=== PATIENT | male | born 1950 | race Caucasian/White ===

== ENCOUNTER 2017-12-08 11:34 | Emergency (ER) | payer OTHER ==
--- NOTE | 2017-12-08 13:36 | RAD REPORT ---
EXAM DESCRIPTION: RAD - Hand Right 3 View - 12/08/2017 1:20 pm CLINICAL HISTORY: swelling, ecchymosis Trauma, pain COMPARISON: No comparisons FINDINGS: Radiocarpal arthritic changes and first carpometacarpal arthritic changes are present. No acute fracture or subluxation is seen. No aggressive marrow lesion. Mild generalized soft tissue swel ling. IMPRESSION: Moderate arthritic changes as detailed.
--- NOTE | 2017-12-08 14:25 | EDPHYS ---
Physician Documentation [facility] Name: Osmar Lutz Age: 67 yrs Sex: Male : 1950 Arrival Date: 12/08/2017 Time: 11:38 Bed 17 Private MD: Jan Pending Sale To [facility] ED Physician Brett Murray HPI: 12/08 12:28 This 67 yrs old Male presents to ER via Ambulatory with complaints of Hand snw Swelling. 12:28 The patient or guardian reports swelling, bruising. The complaints affect the right snw hand diffusely. Context: The problem was sustained at home, resulted from an unknown cause. Onset: The symptoms/episode began/occurred suddenly, 3 day(s) ago, and became persistent. Modifying factors: The symptoms are alleviated by nothing, the symptoms are aggravated by nothing. Associated signs and symptoms: Pertinent positives: significant ecchymosis. Severity of symptoms: At their worst the symptoms were moderate. The patient has not experienced similar symptoms in the past. The patient has not recently seen a physician, the patient's primary care provider is Dr. Dr. Montoya. Historical: - Allergies: 11:42 No Known Allergies; hj - Home Meds: 11:42 Insulin: Novolin R Sub-Q [Active]; metoprolol tartrate Oral [Active]; Allopurinol Oral hj [Active]; 11:43 atorvastatin oral oral [Active]; Furosemide Oral [Active]; hj - PMHx: 11:42 Diabetes - NIDDM; Hypertension; Gout; hj 11:43 Hyperlipidemia; hj - PSHx: 11:42 None; hj - Immunization history:: Adult Immunizations up to date. - Social history:: Smoking status: Patient/guardian denies using tobacco, Patient/guardian denies using alcohol. - Ebola Screening: : Patient negative for fever greater than or equal to 101.5 degrees Fahrenheit, and additional compatible Ebola Virus Disease symptoms Patient denies exposure to infectious person Patient denies travel to an Ebola-affected area in the 21 days before illness onset. ROS: 12:30 Constitutional: Negative for fever, chills, and weight loss, Eyes: Negative for injury, snw pain, redness, and discharge, ENT: Negative for injury, pain, and discharge, Neck: Negative for injury, pain, and swelling, Cardiovascular: Negative for chest pain, palpitations, and edema, Respiratory: Negative for shortness of breath, cough, wheezing, and pleuritic chest pain, Abdomen/GI: Negative for abdominal pain, nausea, vomiting, diarrhea, and constipation, Back: Negative for injury and pain, : Negative for injury, bleeding, discharge, and swelling, Skin: Negative for injury, rash, and discoloration, Neuro: Negative for headache, weakness, numbness, tingling, and seizure. 12:30 MS/extremity: Positive for injury or acute deformity, ecchymosis, swelling, of the right hand. Exam: 12:32 Constitutional: This is a well developed, well nourished patient who is awake, alert, snw and in no acute distress. Head/Face: Normocephalic, atraumatic. Eyes: Pupils equal round and reactive to light, extra-ocular motions intact. Lids and lashes normal. Conjunctiva and sclera are non-icteric and not injected. Cornea within normal limits. Periorbital areas with no swelling, redness, or edema. ENT: Nares patent. No nasal discharge, no septal abnormalities noted. Tympanic membranes are normal and external auditory canals are clear. Oropharynx with no redness, swelling, or masses, exudates, or evidence of obstruction, uvula midline. Mucous membranes moist. Neck: Trachea midline, no thyromegaly or masses palpated, and no cervical lymphadenopathy. Supple, full range of motion without nuchal rigidity, or vertebral point tenderness. No Meningismus. Chest/axilla: Normal chest wall appearance and motion. Nontender with no deformity. No lesions are appreciated. Cardiovascular: Regular rate and rhythm with a normal S1 and S2. No gallops, murmurs, or rubs. Normal PMI, no JVD. No pulse deficits. Respiratory: Lungs have equal breath sounds bilaterally, clear to auscultation and percussion. No rales, rhonchi or wheezes noted. No increased work of breathing, no retractions or nasal flaring. Abdomen/GI: Soft, non-tender, with normal bowel sounds. No distension or tympany. No guarding or rebound. No evidence of tenderness throughout. Back: No spinal tenderness. No costovertebral tenderness. Full range of motion. MS/ Extremity: Pulses equal, no cyanosis. Neurovascular intact. Full, normal range of motion. Neuro: Awake and alert, GCS 15, oriented to person, place, time, and situation. Cranial nerves II-XII grossly intact. Motor strength 5/5 in all extremities. Sensory grossly intact. Cerebellar exam normal. Normal gait. Psych: Awake, alert, with orientation to person, place and time. Behavior, mood, and affect are within normal limits. 12:32 Skin: Appearance: normal except for affected area, injury, right hand dorsally with ecchymosis over 3rd-5th metacarpal area with mild edema, full ROM, low level tenderness. Vital Signs: 11:44 BP 166 / 62; Pulse 62; Resp 18; Temp 97.8(TE); Pulse Ox 98% on R/A; Weight 90.26 kg; hj Height 5 ft. 8 in. (172.72 cm); Pain 2/10; 12:10 BP 162 / 64; Pulse 52; Resp 16; Pulse Ox 94% on R/A; Pain 2/10; em 13:00 BP 171 / 77; Pulse 54; Resp 16; Pulse Ox 95% on R/A; Pain 2/10; em 13:57 BP 155 / 64; Pulse 52; Resp 16; Pulse Ox 97% on R/A; em 11:44 Body Mass Index 30.26 (90.26 kg, 172.72 cm) hj MDM: 11:52 Patient medically screened. snw 14:25 Data reviewed: vital signs, nurses notes. Data interpreted: Pulse oximetry: on room air snw is 97 %. Interpretation: normal. Counseling: I had a detailed discussion with the patient and/or guardian regarding: the historical points, exam findings, and any diagnostic results supporting the discharge/admit diagnosis, the presence of at least one elevated blood pressure reading (>120/80) during this emergency department visit, radiology results, the need for outpatient follow up, to return to the emergency department if symptoms worsen or persist or if there are any questions or concerns that arise at home. Special discussion: Based on the history and exam findings, there is no indication for further emergent testing or inpatient evaluation. I discussed with the patient/guardian the need to see the primary care provider for further evaluation of the symptoms. 12/08 12:13 Order name: Hand Right 3 View; Complete Time: 13:53 EDMS 12/08 13:53 Order name: Volar Wrist Splint; Complete Time: 14:19 snw Administered Medications: No medications were administered Disposition: 15:04 Co-signature as Attending Physician, Brett Murray MD I agree with the assessment and kdr plan of care. Disposition: 12/08/17 14:25 Discharged to Home. Impression: Pain in right hand, Spontaneous ecchymoses. - Condition is Stable. - Discharge Instructions: Musculoskeletal Pain, Cryotherapy, [id number], Heat Therapy. - Medication Reconciliation Form, Thank You Letter, Antibiotic Education, Prescription Opioid Use form. - Follow up: Tony Montoya DO; When: 2 - 3 days; Reason: Recheck today's complaints, Continuance of care, Re-evaluation by your physician. Follow up: Emergency Department; When: As needed; Reason: Worsening of condition. Signatures: Dispatcher [employer] [facility] Brett Murray MD MD kdr Heidy Puente, GROCERY STORE CLERK-C GROCERY STORE CLERK-Csnw Sy Villalba, OFFICE SECRETARY OFFICE SECRETARY Good Diaz, RN RN hj Corrections: (The following items were deleted from the chart) 13:20 13:14 Hand Right 3 View+RAD.RAD.BRZ ordered. [facility] 14:39 14:25 12/08/2017 14:25 Discharged to Home. Impression: Pain in right hand; Spontaneous em ecchymoses. Condition is Stable. Forms are Medication Reconciliation Form, Thank You Letter, Antibiotic Education, Prescription Opioid Use. Follow up: Tony Montoya; When: 2 - 3 days; Reason: Recheck today's complaints, Continuance of care, Re-evaluation by your physician. Follow up: Emergency Department; When: As needed; Reason: Worsening of condition. snw
--- NOTE | 2017-12-08 14:25 | ER ---
Nurse's Notes [facility] Name: Osmar Lutz Age: 67 yrs Sex: Male : 1950 Arrival Date: 12/08/2017 Time: 11:38 Bed 17 Private MD: Tony Montoya Diagnosis: Pain in right hand;Spontaneous ecchymoses Presentation: 12/08 11:38 Presenting complaint: Patient states: few days ago, i was awaken by the pain on my R hj hand and swelling, it seems like its bruised; denies trauma to the area; i think at some point I was bitten by an insect; denies fever and chills; reports tingling and numbness in the area;. Transition of care: patient was not received from another setting of care. Onset of symptoms was December 08, 2017. Risk Assessment: Do you want to hurt yourself or someone else? Patient reports no desire to harm self or others. Initial Sepsis Screen: Does the patient meet any 2 criteria? No. Patient's initial sepsis screen is negative. Does the patient have a suspected source of infection? No. Patient's initial sepsis screen is negative. Care prior to arrival: None. 11:38 Method Of Arrival: Ambulatory 11:38 Acuity: BARON 4 hj Triage Assessment: 11:43 General: Appears in no apparent distress. uncomfortable, Behavior is calm, cooperative, hj appropriate for age. Pain: Complains of pain in right hand Pain currently is 2 out of 10 on a pain scale. Historical: - Allergies: 11:42 No Known Allergies; hj - Home Meds: 11:42 Insulin: Novolin R Sub-Q [Active]; metoprolol tartrate Oral [Active]; Allopurinol Oral hj [Active]; 11:43 atorvastatin oral oral [Active]; Furosemide Oral [Active]; hj - PMHx: 11:42 Diabetes - NIDDM; Hypertension; Gout; hj 11:43 Hyperlipidemia; hj - PSHx: 11:42 None; hj - Immunization history:: Adult Immunizations up to date. - Social history:: Smoking status: Patient/guardian denies using tobacco, Patient/guardian denies using alcohol. - Ebola Screening: : Patient negative for fever greater than or equal to 101.5 degrees Fahrenheit, and additional compatible Ebola Virus Disease symptoms Patient denies exposure to infectious person Patient denies travel to an Ebola-affected area in the 21 days before illness onset. Screenin:43 Abuse screen: Denies threats or abuse. Denies injuries from another. Nutritional hj screening: No deficits noted. Tuberculosis screening: No symptoms or risk factors identified. Fall Risk None identified. Assessment: 11:55 General: Appears in no apparent distress. comfortable, Behavior is calm, cooperative, em Reports felt a bite about a week ago, pain was worse during the week but came in due to the color change in right hand Denies fever, chills. Pain: Complains of pain in right hand. Neuro: Level of Consciousness is awake, alert, obeys commands, Oriented to person, place, time, situation. Cardiovascular: Capillary refill < 3 seconds Patient's skin is warm and dry. Respiratory: Airway is patent Respiratory effort is even, unlabored, Respiratory pattern is regular, symmetrical. GI: Abdomen is round non-distended. : No signs and/or symptoms were reported regarding the genitourinary system. EENT: No signs and/or symptoms were reported regarding the EENT system. Derm: Skin is intact, Skin is pink, warm \T\ dry. Bruising that is dark purple, on right hand. Musculoskeletal: Range of motion: intact in all extremities. 12:10 Reassessment: Patient appears in no apparent distress at this time. I agree with above iw assessment by Sy Villalba LVN. 13:01 Reassessment: Patient appears in no apparent distress at this time. Patient and/or em family updated on plan of care and expected duration. Pain level reassessed. Patient is alert, oriented x 3, equal unlabored respirations, skin warm/dry/pink. 14:00 Reassessment: Patient appears in no apparent distress at this time. Patient and/or em family updated on plan of care and expected duration. Pain level reassessed. Patient is alert, oriented x 3, equal unlabored respirations, skin warm/dry/pink. pt signed ortho form, form on chart. Vital Signs: 11:44 BP 166 / 62; Pulse 62; Resp 18; Temp 97.8(TE); Pulse Ox 98% on R/A; Weight 90.26 kg; hj Height 5 ft. 8 in. (172.72 cm); Pain 2/10; 12:10 BP 162 / 64; Pulse 52; Resp 16; Pulse Ox 94% on R/A; Pain 2/10; em 13:00 BP 171 / 77; Pulse 54; Resp 16; Pulse Ox 95% on R/A; Pain 2/10; em 13:57 BP 155 / 64; Pulse 52; Resp 16; Pulse Ox 97% on R/A; em 11:44 Body Mass Index 30.26 (90.26 kg, 172.72 cm) hj ED Course: 11:38 Patient arrived in ED. mr 11:38 Tony Montoya DO is Private Physician. mr 11:41 Triage completed. hj 11:43 Arm band placed on left wrist. hj 11:45 Patient has correct armband on for positive identification. hj 11:52 Heidy Puente FNP-C is [facility]. snw 11:52 Brett Murray MD is Attending Physician. snw 11:58 Sy Villalba LVN is Primary Nurse. em 13:20 Hand Right 3 View In Process Unspecified. EDMS 14:10 No provider procedures requiring assistance completed. Patient did not have IV access em during this emergency room visit. Orthoglass splint: Volar splint applied on right arm. 14:24 Tony Montoya DO is Referral Physician. snw Administered Medications: No medications were administered Outcome: 14:25 Discharge ordered by MD. snw 14:39 Discharged to home ambulatory. em 14:39 Condition: good 14:39 Discharge instructions given to patient. 14:39 Instructed on discharge instructions, follow up and referral plans. Demonstrated understanding of instructions, follow-up care. 14:39 Patient left the ED. em Signatures: Dispatcher [employer] EDMS Heidy Puente FNP-C CYBER SECURITY ADMINISTRATOR-Csnw [employer] Kristina salazar VillalbaSy LVN VIDEO NEWS EDITOR em Gail Russ RN TALIB Good Julian RN RN Corrections: (The following items were deleted from the chart) 11:45 11:44 Pulse 62bpm; Resp 18bpm; Pulse Ox 96% RA; Temp 97.8F Temporal; 90.26 kg; Height 5 hj ft. 8 in.; BMI: 30.2; Pain 2/10; hj
== END 2017-12-08 14:39 | disposition home or self-care (01) ==
LOC: ER 11:34
DX: M79.641 Pain in right hand (principal); R23.3 Spontaneous ecchymoses; E11.9 Type 2 diabetes mellitus without complications; I10 Essential (primary) hypertension; E78.5 Hyperlipidemia, unspecified
CPT/HCPCS: 99283

== ENCOUNTER 2020-02-09 09:00 | Day surgery (SDC) | payer OTHER ==
--- OUTSIDE RECORDS SUMMARY | 2020-02-09 09:09 | XMS REPORT ---
:1950 Author Organization eClinical[employer] Care Team Providers Name Role Phone Tony Montoya Provider Role Unavailable Allergies No Known Allergies Problems Problem Type Condition Code Onset Dates Condition Statu s Problem Chronic kidney disease, stage 3 N18.3 Active Problem Other obesity due to excess calories E66.09 Active Problem Iron deficiency anemia, unspecified D50.9 Active iron deficiency anemia type Problem Type 2 diabetes mellitus with E11.22 Active diabetic chronic kidney disease Problem Type 2 diabetes mellitus with other E11.29 Active diabetic kidney complication Problem Diabetes 1.5, 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 Problem Proteinuria, unspecified R80.9 Act kristen Problem Body mass index (BMI) 31.0-31.9, Z68.31 Active adult Problem assisted (current) use of insulin Z79.4 Active Problem Chronic kidney disease, stage 3 N18.3 Active (moderate) Problem Gout, unspecified cause, unspecified M10.9 Active chronicity, unspecified site Assessment Benign essential HTN I10 Active Problem Vitamin D deficiency E55.9 Active Problem Benign essential HTN I10 Active Problem Venous insufficiency I87.2 Active Problem Hyperlipidemia, mixed E78.2 Active Problem Diabetes type 2, uncontrolled E11.65 Active Problem Stasis dermatitis I83.10 Active Medications Medication Code Code Instructions Start End Status Dosage System Date Date HydrALAZINE HCl [facility] [id number] 100 MG Orally Active 1 tablet Three times a with food day Results No Known Results Summary Purpose eClinicalWorks Submission
--- OUTSIDE RECORDS SUMMARY | 2020-02-09 09:09 | XMS REPORT | Continuity of Care Document ---
:1950 Author Organization [facility] t Address [address] [place] [id number] Care Team Providers Name Role Phone Unavailable Unavailable Unavailable Problems Condition Condition Condition Status Onset Resolution Last Treating Co mments Source Name Details Category Date Date Treatment Clinician Date Diabetes Diabetes Problem [facility] - uncontroll uncontroll Me moria ed ed l [facility] Gout, Gout, Problem Active [facility] unspecifie unspecifie Rhonda kes - d cause, d cause, Memori a unspecifie unspecifie l d d Outpati chronicity chronicity en t , , Clinics unspecifie unspecifie d site d site Vitamin D Vitamin D Problem Active [facility] deficiency deficiency Rhonda kes - Memoria l [facility] Benign Benign Problem Active [facility] essential essential [facility] - HTN HTN Memoria l [facility] Hyperlipid Hyperlipid Problem Active [facility] emia, emia, [facility] - mixed mixed Memoria l [facility] Chronic Chronic Problem Active [facility] kidney kidney [facility] - disease, disease, Memori a stage 3 stage 3 l (moderate) (moderate) Ou tpati ent Clinics Venous Venous Problem Active [facility] insufficie insufficie Rhonda kes - ncy ncy Memoria l [facility] Stasis Stasis Problem Active [facility] dermatitis dermatitis Rhonda kes - Memoria l [facility] Iron Iron Problem Active [facility] deficiency deficiency Rhonda kes - anemia, anemia, Memoria unspecifie unspecifie l d iron d iron Outpati deficiency deficiency en t anemia anemia Clinics type type Body mass Body mass Problem Active [facility] index index [facility] - (BMI) (BMI) Memoria 31.0-31.9, 31.0-31.9, l adult adult [facility] Other Other Problem Active [facility] obesity obesity [facility] - due to due to Memoria excess excess l calories calories Outpat i ent Clinics long term care administrator long term care administrator Problem Active [facility] (current) (current) Luke [facility] - use of use of Memoria insulin insulin l Outpati ent Clinics Proteinuri Proteinuri Problem Active [facility] a, a, [facility] - unspecifie unspecifie Me moria d d l [facility] Type 2 Type [address] [facility] diabetes diabetes [facility] - mellitus mellitus Memori a with with l diabetic diabetic Outpat i chronic chronic ent kidney kidney Clinics disease disease Type 2 Type [address] [facility] diabetes diabetes [facility] - mellitus mellitus Memori a with other with other l diabetic diabetic Outpat i kidney kidney ent complicati complicati Cl inics on on Diabetes Diabetes Problem [facility] 1.5, 1.5, [facility] - managed as managed as moriamaya type 1 type 1 l [facility] Allergies, Adverse Reactions, Alerts This patient has no known allergies or adverse reactions. Medications Ordered Filled Start Stop Current Ordering Indication Dosage Frequency Signature Comments Components Source Medication Medication Date Date Medication? Clinician (SIG) Name Name HydrALAZINE HydrALAZINE Yes Tony [address] [facility] HCl HCl Montoya with food [facility] - [facility] Procedures This patient has no known procedures. Encounters Start End Encounter Admission Attending Care Care Encounter Source Date/Time Date/Time Type Type Clinicians Facility Department ID 2020-01-23 2020-01-23 Outpatient Deejay Villalbat [id number] [facility] 15:43:00 15:43:00 [employer] [facility] Medicine l Medicine Outpati ent Clinics 2019-12-31 2019-12-31 [facility] [id number] [facility] 09:45:00 09:45:00 [facility] Family Medicine l Medicine Outpati ent Clinics 2019-11-03 2019-11-03 [facility] [id number] [facility] 15:46:00 15:46:00 [facility] Dealer [employer] [facility] Medicine l Medicine Outpati ent Clinics 2019-10-01 2019-10-01 [place] [facility] [id number] [facility] 10:15:00 10:15:00 [facility] Medicine l Medicine Outpati ent Clinics 2019-09-09 2019-09-09 [place] [id number] 10:46:00 10:46:00 [place] [facility] [place] [facility] - [facility] Medicine Medicine Outpati ent Clinics 2019-07-02 2019-07-02 [facility] [id number] [facility] 10:30:00 10:30:00 [place] [facility] s - Drive [facility] l Medicine Outpati ent Clinics 2019-06-09 2019-06-09 [place] [id number] 10:56:00 10:56:00 [place] [facility] s - Drive [facility] Medicine l Medicine Outpati ent Clinics 2019-05-12 2019-05-12 [facility] [id number] [facility] 15:18:00 15:18:00 [place] i[place]ian s - Drive [facility] l Medicine Outpati ent Clinics 2019-05-01 2019-05-01 [facility] [id number] [facility] 13:49:00 13:49:00 [place] - Drive [facility] Medicine Outpati ent Clinics 2019-04-30 2019-04-30 [facility] [id number] 08:52:00 08:52:00 [place] s - Drive [facility] l Medicine Outpati ent Clinics 2019-04-29 2019-04-29 [facility] [id number] 09:23:00 09:23:00 [place] - Drive [facility] Medicine Outpati ent Clinics 2019-03-19 2019-03-19 [facility] [id number] [facility] 13:15:00 13:15:00 [place] - [address] [facility] Medicine l Medicine Outpati ent Clinics 2019-03-18 2019-03-18 [facility] [id number] 08:32:00 08:32:00 [place] - Drive [facility] l Medicine Outpati ent Clinics 2018-12-03 2018-12-03 [facility] [id number] [facility] 15:00:00 15:00:00 [place] - [address] [facility] Medicine Outpati ent Clinics 2018-08-13 2018-08-13 [facility] [id number] [facility] 14:30:00 14:30:00 t [employer] [facility] Medicine Outpati ent Clinics 2018-08-12 2018-08-12 [facility] [id number] 15:13:00 15:13:00 t [employer] [facility] Medicine Outpati ent Clinics 2018-07-03 2018-07-03 [facility] [id number] [facility] 14:29:00 14:29:00 t [employer] [facility] Medicine Outpati ent Clinics 2018-01-14 2018-01-14 [facility] [id number] 09:30:00 09:30:00 t [employer] [facility] Medicine Outpati ent Clinics Results This patient has no known results.
--- OUTSIDE RECORDS SUMMARY | 2020-02-09 09:09 | XMS REPORT ---
:1950 Author Organization [employer] Care Team Providers Name Role Phone Tony Montoya Provider Role Unavailable Allergies, Adverse Reactions, Alerts Substance Reaction Event Type N.K.D.A. Info Not Available Non Drug Allergy Problems Problem Type Condition Code Onset Dates Condition Statu s Assessment Body mass index (BMI) 31.0-31.9, Z68.31 Active adult Assessment care home (current) use of insulin Z79.4 Active Assessment Screening for colon cancer Z12.11 A ctive Assessment Other obesity due to excess calories E66.09 Active Assessment Polyp of colon, unspecified part of K63.5 Active colon, unspecified type Assessment Iron deficiency anemia, unspecified D50.9 Active iron deficiency anemia type Assessment Gout, unspecified cause, unspecified M10.9 Active chronicity, unspecified site Assessment Vitamin D deficiency E55.9 Active Problem Hyperlipidemia, mixed E78.2 Active Assessment Stasis dermatitis I83.10 Active Problem Stasis dermatitis I83.10 Active Assessment Proteinuria, unspecified R80.9 Act kristen Problem Chronic kidney disease, stage 3 N18.3 Active Problem Other obesity due to excess calories E66.09 Active Problem Iron deficiency anemia, unspecified D50.9 Active iron deficiency anemia type Problem Type 2 diabetes mellitus with E11.22 Active diabetic chronic kidney disease Problem Type 2 diabetes mellitus with other E11.29 Active diabetic kidney complication Assessment Chronic kidney disease, stage 3 N18.3 Active Assessment Hyperlipidemia, mixed E78.2 Active Problem Diabetes 1.5, 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 Assessment Venous insufficiency I87.2 Active Problem Proteinuria, unspecified R80.9 Act kristen Problem Body mass index (BMI) 31.0-31.9, Z68.31 Active adult Problem care home (current) use of insulin Z79.4 Active Problem Chronic kidney disease, stage 3 N18.3 Active (moderate) Problem Gout, unspecified cause, unspecified M10.9 Active chronicity, unspecified site Assessment Benign essential HTN I10 Active Assessment Type 2 diabetes mellitus with E11.22 Active diabetic chronic kidney disease Problem Vitamin D deficiency E55.9 Active Problem Benign essential HTN I10 Active Problem Venous insufficiency I87.2 Active Problem Diabetes type 2, uncontrolled E11.65 Active Medications Medication Code Code Instructions Start End Status Dosage System Date Date Allopurinol [facility] 66435459725 100 MG Active TAKE 2 TABLETS BY MOUTH ONCE A DAY Ferrous Sulfate [facility] 06937417646 325 (65 Fe) MG Activ e 1 tablet Orally TID Clonidine HCl [facility] 81560819853 0.3 MG Active TAKE 1 TABLET BY MOUTH TWICE DAILY Gabapentin [facility] 85836072284 100 MG Active TAKE 1 CAPSULE BY MOUTH THREE TIMES DAILY Lipitor [facility] 40570352236 40 MG Orally Active once a day Once a day at bed time Allopurinol [facility] 54088463741 100 MG Orally Active 2 tab by Once a day mouth once daily Bumetanide [facility] 38501950815 1 MG Orally Active not defined HumuLIN R U-500 [facility] [address]-47 500 UNIT/ML Active Inject 10 KwikPen Subcutaneous units BID Humulin R U-500 [facility] 00070874182 500 UNIT/ML Active INJECT 20 (Concentrated) UNITS UNDER THE SKIN TWICE DAILY Atorvastatin [facility] 09049781546 40 MG Active TAKE 1 Calcium TABLET BY MOUTH EVERY NIGHT AT BEDTIME HydrALAZINE HCl [facility] 44459797084 100 MG Active TAKE 1 TABLET BY MOUTH THREE TIMES DAILY WITH FOOD Lisinopril [facility] 76431089206 20 MG Active TAKE 1 TABLET BY MOUTH EVERY DAY HydrALAZINE HCl [facility] 42278257414 25 MG Orally Active 1 tablet Three times a with food day Furosemide ND 40867249548 40 MG Orally Active 1 ta blet Once a day HydrALAZINE HCl [facility] 52582351793 100 MG Orally Active 1 tablet Three times a with food day Lisinopril [facility] 31900289907 20 MG Orally Active 1 ta blet Once a day Clonidine HCl [facility] 12853921731 0.3 MG Orally Active 1 tablet BID Results No Known Results Summary Purpose eClinicalWorks Submission
[2020-02-09] MEDS ORDERED: NA CHLORIDE 0.9% 1,000 ML ONE (10:03)
[2020-02-09] MEDS ORDERED: LIDOCAINE 1% MPF 5 ML VIAL ONE (12:13)
[2020-02-09] MEDS ORDERED: propofoL 200 MG/20 ML VIAL IV ONE (12:13)
--- NOTE | 2020-02-09 12:35 | ENDO RPT ---
[address], [address] COLONOSCOPY PROCEDURE REPORT EXAM DATE: 02/09/2020 PATIENT NAME: Osmar Lutz MR #: [id number] BIRTHDATE: 1950 ATTENDING: Good Cantu MD STATUS: outpatient USER EXPERIENCE DEVELOPER: Tatyana CONWAY and Betty Palencia RN INDICATIONS: The patient is a 69 yr old Male here for a colonoscopy due to family history of colon cancer, colon cancer screening, and personal history of colon polyps PROCEDURE PERFORMED: Colonoscopy MEDICATIONS: Per Anesthesia. ESTIMATED BLOOD LOSS: None CONSENT: The patient understands the risks and benefits of the procedure and understands that these risks include, but are not limited to: sedation, allergic reaction, infection, perforation and/or bleeding. Alternative means of evaluation and treatment include, among others: physical exam, x-rays, and/or surgical intervention. The patient elects to proceed with this endoscopic procedure. DESCRIPTION OF PROCEDURE: During intra-op preparation period all mechanical medical equipment was checked for proper function. Hand hygiene and appropriate measures for infection prevention was taken. Procedure, possible complications, alternatives including, but not limited to possibility of bleeding, perforation, tear, infection, sepsis, need for surgery, need for blood transfusion, were explained to the patient. After the risks, benefits and alternatives of the procedure were thoroughly explained, Informed consent was verified, confirmed and timeout was successfully executed by the treatment team. The patient was placed in the left lateral position. A digital rectal exam was performed and revealed hemorrhoids. After appropriate level of anesthesia, the scope was passed. The EC-[id number] ([id number]) endoscope was introduced through the anus and advanced to the cecum, which was identified by transillumination from the light source, the appendix, and the ileocecal valve. The quality of the prep was fair. The instrument was then slowly withdrawn as the colon was fully examined. Scope withdrawal time was . COLON FINDINGS: Diverticula was found in the descending colon. The opening was medium sized. Moderate sized internal and external hemorrhoids were found. Retroflexed views revealed no abnormalities. The scope was then completely withdrawn from the patient and the procedure terminated. ADVERSE EVENTS: There were no complications. IMPRESSIONS: 1. Diverticula in the descending colon 2. Moderate sized internal and external hemorrhoids RECOMMENDATIONS: 1. follow-up: office 1-2 week(s) 2. no seeds in diet 3. continue surveillance RECALL: Return in 3 year(s) Good Cantu MD eSigned: Good Cantu MD 02/09/2020 12:34 PM cc: Tony Montoya MD CPT CODES: ICD9 CODES: PATIENT NAME: Osmar Lutz MR#: [id number]
[2020-02-09 13:41] VITALS: TEMP 97.6
[2020-02-09 14:03] VITALS: BP 162/69; O2SAT 94
== END 2020-02-09 13:30 | disposition home or self-care (01) ==
LOC: OR 09:00
PROVIDERS: ATTEND Surgery
PROC: 0DJD8ZZ Inspection of Lower Intestinal Tract, Via Natural or Artificial Opening Endoscopic (ICD-10-PCS; principal; 2020-02-09 11:15)
DX: Z12.11 Encounter for screening for malignant neoplasm of colon (principal); Z80.0 Family history of malignant neoplasm of digestive organs; Z86.010 Personal history of colon polyps; K57.30 Diverticulosis of large intestine without perforation or abscess without bleeding; K64.8 Other hemorrhoids; K64.4 Residual hemorrhoidal skin tags; Z20.828 Contact with and (suspected) exposure to other viral communicable diseases; M10.9 Gout, unspecified; I11.9 Hypertensive heart disease without heart failure; E11.51 Type 2 diabetes mellitus with diabetic peripheral angiopathy without gangrene; Z79.899 Other long term (current) drug therapy
CPT/HCPCS: 82947; U0002; J2704; J7030; G0105

== ENCOUNTER 2020-06-18 06:00 | Emergency (ER) | payer OTHER ==
--- OUTSIDE RECORDS SUMMARY | 2020-06-18 06:02 | XMS REPORT | Continuity of Care Document ---
:1950 Author Organization [facility] t Address [address] [place] [address] Care Team Providers Name Role Phone Unavailable Unavailable Unavailable Problems This patient has no known problems. Allergies, Adverse Reactions, Alerts This patient has no known allergies or adverse reactions. Medications Ordered Filled Start Stop Current Ordering Indication Dosage Frequency Signature Comments Components Source Medication Medication Date Date Medication? Clinician (SIG) Name Name HydrALAZINE HydrALAZINE Yes Tony [address] [facility] HCl HCl Montoya with food [facility] Procedures This patient has no known procedures. Encounters Start End Encounter Admission Attending Care Care Encounter Source Date/Time Date/Time Type Type Clinicians Facility Department ID 2020-05-07 2020-05-07 [id number] 2020-04-01 2020-04-01 [facility] [id number] 2020-03-18 2020-03-18 [facility] [id number] [facility] 2020-01-23 2020-01-23 [facility] [id number] [facility] 15:43:00 15:43:00 [employer] [facility] 2020-01-21 2020-01-21 [facility] [id number] [facility] 2019-12-31 2019-12-31 [facility] [id number] [facility] 09:45:00 09:45:[address] [facility] 2019-11-03 2019-11-03 [facility] [id number] [facility] 15:46:00 15:46:[address] [facility] [address] [place] [place] [address] [facility] 2019-10-01 2019-10-01 [facility] [id number] [facility] 10:15:00 10:15:00 [place] [address] [employer] [address] [facility] 2019-09-09 2019-09-09 [facility] [id number] [facility] 10:46:00 10:46:00 [place] [employer] [address] [facility] 2019-07-02 2019-07-02 [facility] [id number] [facility] 10:30:00 10:30:00 [place] [employer] [address] [facility] 2019-06-09 2019-06-09 [facility] [id number] 10:56:00 10:56:00 [place] [employer] [address] [facility] 2019-05-12 2019-05-12 [facility] [id number] 15:18:00 15:18:00 [place] [employer] [address] [facility] 2019-05-01 2019-05-01 [facility] [id number] 13:49:00 13:49:[address] [facility] 2019-04-30 2019-04-30 [facility] [id number] 08:52:00 08:52:00 [place] [employer] [address] [facility] 2019-04-29 2019-04-29 [facility] [id number] 09:23:00 09:23:00 [place] [employer] [facility] 2019-03-19 2019-03-19 [facility] [id number] 13:15:00 13:15:00 t [employer] [facility] 2019-03-18 2019-03-18 [facility] [id number] 08:32:00 08:32:00 t [employer] [facility] 2018-12-03 2018-12-03 [facility] [id number] [facility] 15:00:00 15:00:00 t [employer] [facility] 2018-08-13 2018-08-13 [facility] [id number] 14:30:00 14:30:00 t [employer] [facility] 2018-08-12 2018-08-12 [facility] [id number] [facility] 15:13:00 15:13:00 t [employer] [facility] 2018-07-03 2018-07-03 [facility] [id number] 14:29:00 14:29:00 t [employer] [facility] 2018-01-14 2018-01-14 [facility] [id number] 09:30:00 09:30:00 t [employer] [facility] Results This patient has no known results.
--- NOTE | 2020-06-18 06:31 | ER ---
Nurse's Notes [facility] Name: Osmar Lutz Age: 69 yrs Sex: Male : 1950 Arrival Date: 06/18/2020 Time: 06:03 Bed 8 Private MD: Diagnosis: Dropped and broke bottle of insulin. Need prescription for new bottle Presentation: 06/18 06:13 Chief complaint: Patient states: dropped bottle of insulin on the floor and it broke. rv Coronavirus screen: Client denies travel out of the [place] in the last 14 days. At this time, the client does not indicate any symptoms associated with coronavirus-19. Ebola Screen: Patient negative for fever greater than or equal to 101.5 degrees Fahrenheit, and additional compatible Ebola Virus Disease symptoms Patient denies exposure to infectious person. Patient denies travel to an Ebola-affected area in the 21 days before illness onset. No symptoms or risks identified at this time. Initial Sepsis Screen: Does the patient meet any 2 criteria? No. Patient's initial sepsis screen is negative. Does the patient have a suspected source of infection? No. Patient's initial sepsis screen is negative. Risk Assessment: Do you want to hurt yourself or someone else? Patient reports no desire to harm self or others. Onset of symptoms was June 18, 2020. 06:13 Acuity: BARON 5 rv 06:13 Method Of Arrival: Ambulatory rv Historical: - Allergies: 06:17 No Known Allergies; rv - Home Meds: 06:17 Humulin R 100 unit/mL Sub-Q soln 20 units BID [Active]; Lisinopril Oral [Active]; rv - PMHx: 06:17 Diabetes - NIDDM; Hypertension; rv - PSHx: 06:17 None; rv - Immunization history:: Adult Immunizations unknown. - Social history:: Smoking status: Patient denies any tobacco usage or history of. Screenin:40 Abuse screen: Denies threats or abuse. Nutritional screening: No deficits noted. ea Tuberculosis screening: No symptoms or risk factors identified. Fall Risk None identified. Assessment: 06:46 Reassessment: Patient and/or family updated on plan of care and expected duration. Pain ea level reassessed. Patient is alert, oriented x 3, equal unlabored respirations, skin warm/dry/pink. Discharge instruction given to patient, verbalized the understanding of instruction. Pt left ED ambulatory tolerating well. Vital Signs: 06:15 BP 129 / 61; Pulse 66; Resp 16; Temp 97.8; Pulse Ox 97% on R/A; rv ED Course: 06:03 Patient arrived in ED. bp1 06:16 Vick Munoz MD is Attending Physician. pkl 06:16 Triage completed. rv 06:20 Patient has correct armband on for positive identification. Bed in low position. Call ea light in reach. 06:30 Arm band placed on right wrist. Patient placed in an exam room, on a stretcher, on ea pulse oximetry. 06:46 No provider procedures requiring assistance completed. IV discontinued, intact, ea bleeding controlled, No redness/swelling at site. Pressure dressing applied. Administered Medications: No medications were administered Outcome: 06:30 Discharge ordered by . pkl 06:46 Discharged to home ambulatory. ea 06:46 Condition: stable 06:46 Discharge instructions given to patient, Instructed on discharge instructions, follow up and referral plans. Demonstrated understanding of instructions, follow-up care. 06:48 Patient left the ED. ea Signatures: Vick Munoz MD MD pkl Antunez, Elena, RN RN Carlos Eduardo Corrales, RN RN Cheli Keyes bp1
--- NOTE | 2020-06-18 06:31 | EDPHYS ---
Physician Documentation [facility] Name: Osmar Lutz Age: 69 yrs Sex: Male : 1950 Arrival Date: 06/18/2020 Time: 06:03 Bed 8 Private MD: ED Physician Vick Munoz HPI: 06/18 06:22 This 69 yrs old Male presents to ER via Ambulatory with complaints of pkl Diabetic-dropped insulin on floor. 06:22 Patient dropped the last bottle of his insulin on the floor and broke the bottle. Need pkl prescription for a new bottle of insulin. Historical: - Allergies: 06:17 No Known Allergies; rv - Home Meds: 06:17 Humulin R 100 unit/mL Sub-Q soln 20 units BID [Active]; Lisinopril Oral [Active]; rv - PMHx: 06:17 Diabetes - NIDDM; Hypertension; rv - PSHx: 06:17 None; rv - Immunization history:: Adult Immunizations unknown. - Social history:: Smoking status: Patient denies any tobacco usage or history of. ROS: 06:22 Eyes: Negative for injury, pain, redness, and discharge, ENT: Negative for injury, pkl pain, and discharge, Neck: Negative for injury, pain, and swelling, Cardiovascular: Negative for chest pain, palpitations, and edema, Respiratory: Negative for shortness of breath, cough, wheezing, and pleuritic chest pain, Abdomen/GI: Negative for abdominal pain, nausea, vomiting, diarrhea, and constipation, Back: Negative for injury and pain, : Negative for injury, bleeding, discharge, and swelling, MS/Extremity: Negative for injury and deformity, Skin: Negative for injury, rash, and discoloration, Neuro: Negative for headache, weakness, numbness, tingling, and seizure. Exam: 06:22 Head/Face: Normocephalic, atraumatic. Eyes: Pupils equal round and reactive to light, pkl extra-ocular motions intact. Lids and lashes normal. Conjunctiva and sclera are non-icteric and not injected. Cornea within normal limits. Periorbital areas with no swelling, redness, or edema. ENT: Nares patent. No nasal discharge, no septal abnormalities noted. Tympanic membranes are normal and external auditory canals are clear. Oropharynx with no redness, swelling, or masses, exudates, or evidence of obstruction, uvula midline. Mucous membranes moist. Neck: Trachea midline, no thyromegaly or masses palpated, and no cervical lymphadenopathy. Supple, full range of motion without nuchal rigidity, or vertebral point tenderness. No Meningismus. Chest/axilla: Normal chest wall appearance and motion. Nontender with no deformity. No lesions are appreciated. Cardiovascular: Regular rate and rhythm with a normal S1 and S2. No gallops, murmurs, or rubs. Normal PMI, no JVD. No pulse deficits. Respiratory: Lungs have equal breath sounds bilaterally, clear to auscultation and percussion. No rales, rhonchi or wheezes noted. No increased work of breathing, no retractions or nasal flaring. Abdomen/GI: Soft, non-tender, with normal bowel sounds. No distension or tympany. No guarding or rebound. No evidence of tenderness throughout. Back: No spinal tenderness. No costovertebral tenderness. Full range of motion. Skin: Warm, dry with normal turgor. Normal color with no rashes, no lesions, and no evidence of cellulitis. MS/ Extremity: Pulses equal, no cyanosis. Neurovascular intact. Full, normal range of motion. Neuro: Awake and alert, GCS 15, oriented to person, place, time, and situation. Cranial nerves II-XII grossly intact. Motor strength 5/5 in all extremities. Sensory grossly intact. Cerebellar exam normal. Normal gait. Vital Signs: 06:15 BP 129 / 61; Pulse 66; Resp 16; Temp 97.8; Pulse Ox 97% on R/A; rv MDM: 06:16 Patient medically screened. pkl 06:22 Data reviewed: vital signs, nurses notes. [facility] 06/18 06:30 Order name: Glucose, Ancillary Testing; Complete Time: 06:35 EDMS Administered Medications: No medications were administered Disposition: 06/18/20 06:30 Discharged to Home. Impression: Dropped and broke bottle of insulin. Need prescription for new bottle. - Condition is Stable. - Medication Reconciliation Form, Thank You Letter, Antibiotic Education, Prescription Opioid Use form. - Follow up: Private Physician; When: 2 - 3 days; Reason: Re-evaluation by your physician. - Problem is new. - Symptoms have improved. Signatures: Vikc Munoz MD MD pkl Antunez, Cande, RN RN Carlos Eduardo Corrales, RN RN rv Corrections: (The following items were deleted from the chart) 06:48 06:30 06/18/2020 06:30 Discharged to Home. Impression: Dropped and broke bottle of ea insulin. Need prescription for new bottle. Condition is Stable. Forms are Medication Reconciliation Form, Thank You Letter, Antibiotic Education, Prescription Opioid Use. Follow up: Private Physician; When: 2 - 3 days; Reason: Re-evaluation by your physician. Problem is new. Symptoms have improved. pkl
[2020-06-18 06:52] VITALS: BP 129/61; TEMP 97.8; O2SAT 97
== END 2020-06-18 06:48 | disposition home or self-care (01) ==
LOC: ER 06:00
DX: Z76.0 Encounter for issue of repeat prescription (principal)
CPT/HCPCS: 82947; 99283

== ENCOUNTER 2020-08-13 14:22 | Emergency (ER) | payer OTHER ==
--- OUTSIDE RECORDS SUMMARY | 2020-08-13 14:25 | XMS REPORT | Continuity of Care Document ---
:1950 Author Organization [facility] t Address [address] [place] [address] Care Team Providers Name Role Phone Unavailable Unavailable Unavailable Problems This patient has no known problems. Allergies, Adverse Reactions, Alerts This patient has no known allergies or adverse reactions. Medications Ordered Filled Start Stop Current Ordering Indication Dosage Frequency Signature Comments Components Source Medication Medication Date Date Medication? Clinician (SIG) Name Name HydrALAZINE HydrALAZINE Yes Otny [address] [facility] HCl HCl [facility] with food [facility] Procedures This patient has no known procedures. Encounters Start End Encounter Admission Attending Care Care Encounter Source Date/Time Date/Time Type Type Clinicians Facility Department ID 2020-07-06 2020-07-06 Outpatient [facility] [id number] [facility] 2020-07-02 2020-07-02 Outpatient [facility] [id number] [facility] 2020-07-02 2020-07-02 Outpatient [facility] [id number] [facility] 2020-05-07 2020-05-07 Outpatient [facility] [id number] [facility] 2020-04-01 2020-04-01 Outpatient [facility] [id number] [facility] 2020-03-18 2020-03-[address] [facility] [id number] [facility] 2020-01-23 2020-01-23 [facility] [id number] [facility] 15:43:00 15:43:00 [facility] [employer] [facility] 2020-01-21 2020-01-[address] [facility] [id number] [facility] 2019-12-31 2019-12-31 [facility] [id number] 09:45:00 09:45:00 [facility] [employer] [facility] - [employer] [facility] 2019-11-03 2019-11-03 [facility] [id number] [facility] 15:46:00 15:46:[address] [facility] [address] [employer] [address] [facility] 2019-10-01 2019-10-01 [facility] [id number] 10:15:00 10:15:00 [facility] [employer] [facility] 2019-09-09 2019-09-09 [facility] [id number] 10:46:00 10:46:00 [facility] [employer] [facility] [address] [facility] 2019-07-02 2019-07-02 [facility] [id number] [facility] 10:30:00 10:30:00 [facility] [place] [employer] s - Drive [facility] 2019-06-09 2019-06-09 [facility] [id number] 10:56:00 10:56:00 [employer] [address] [facility] 2019-05-12 2019-05-12 [facility] [id number] [facility] 15:18:00 15:18:00 [employer] - [address] [facility] Clin[facility] 2019-05-01 2019-05-01 [facility] [id number] 13:49:00 13:49:00 [place] [employer] - Drive [facility] 2019-04-30 2019-04-30 [facility] [id number] 08:52:00 08:52:00 [place] [employer] - Drive [facility] 2019-04-29 2019-04-29 [facility] [id number] 09:23:00 09:23:00 [place] [employer] - Drive [facility] 2019-03-19 2019-03-19 [facility] [id number] 13:15:00 13:15:00 [place] [employer] - Drive [facility] 2019-03-18 2019-03-18 [facility] [id number] 08:32:00 08:32:00 [place] [employer] - Drive [facility] 2018-12-03 2018-12-03 [facility] [id number] [facility] 15:00:00 15:00:00 [employer] [address] [facility] 2018-08-13 2018-08-13 [facility] [id number] [facility] 14:30:00 14:30:00 [place] [employer] [address] - [address] [facility] Medicine Medicine Outpati ent Clinics 2018-08-12 2018-08-12 [facility] [id number] [facility] 15:13:00 15:13:00 [employer] [address] [facility] Clin[facility] 2018-07-03 2018-07-03 [facility] [id number] 14:29:00 14:29:00 [place] [employer] [facility] - Drive [facility] Clin[facility] 2018-01-14 2018-01-14 [facility] [id number] [facility] 09:30:00 09:30:00 t [employer] [facility] Results This patient has no known results.
[2020-08-13] MEDS ORDERED: MORPHINE 4 MG/ML SYR ONE (15:40)
[2020-08-13] MEDS ORDERED: FUROSEMIDE 40 MG/4 ML VIAL ONE (15:41)
[2020-08-13] MEDS ORDERED: ONDANSETRON 4 MG/2 ML VIAL ONE (15:41)
[2020-08-13 15:45] LABS: Absolute Lymphocytes (CBC) 0.8 K/uL (0.7-4.9); Basophils % 0.6 % (0-1.3); Hematocrit 34.9 % (39.6-49.0); Lymphocytes % 12.3 % (15.3-44.8); MPV 9.2 fL (7.6-11.3); RBC Red Blood Cell Count 4.06 M/uL (4.33-5.43)
[2020-08-13 15:48] LABS: Protime INR 1.03
[2020-08-13 16:02] LABS: ALT/SGPT 21 U/L (12-78); AST/SGOT 15 U/L (15-37); Albumin 2.8 g/dL (3.4-5.0); Alkaline Phosphatase 129 U/L (45-117); BUN Blood Urea Nitrogen 52 mg/dL (7-18); Bicarbonate 26 mmol/L (21-32); Bilirubin Direct < 0.1 mg/dL (0-0.2); Bilirubin Total 0.2 mg/dL (0.2-1.0); Glucose Level 323 mg/dL (74-106); Magnesium 2.1 mg/dL (1.8-2.4); NT PRO-BNP 1393 pg/mL (<125); Potassium 4.6 mmol/L (3.5-5.1); Sodium Level 141 mmol/L (136-145); Troponin (Emerg Dept Use Only) 0.02 ng/mL (0.0-0.045)
--- NOTE | 2020-08-13 16:07 | RAD REPORT ---
EXAM DESCRIPTION: RAD - Chest Single View - 08/13/2020 3:35 pm CLINICAL HISTORY: edema Chest pain. COMPARISON: No comparisons FINDINGS: Portable technique limits examination quality. Mild interstitial pulmonary edema seen. The heart is moderately enlarged in size. No displaced fractu res. IMPRESSION: Mild CHF.
[2020-08-13] MEDS ORDERED: cloNIDine HCL 0.1 MG TAB ONE (17:33)
[2020-08-13] MEDS ORDERED: carvediloL 6.25 MG TAB ONE (17:34)
--- NOTE | 2020-08-13 17:52 | RAD REPORT ---
EXAM DESCRIPTION: US - Extrem Venous W Compress Scott - 08/13/2020 5:17 pm CLINICAL HISTORY: SWELLING Bilateral leg edema and swelling. COMPARISON: No comparisons TECHNIQUE: Real-time sonographic interrogation of the left and right lower extremity deep venous sys tems was performed. FINDINGS: Normal compressibility, flow augmentation, phasic flow and spontaneous flow is identified in both the left and right lower extremity deep venous systems. IMPRESSION: No sonographic evidence of left or right lower extremity deep venous thrombosis.
--- NOTE | 2020-08-13 18:21 | EDPHYS ---
Physician Documentation [facility] Name: Osmar Lutz Age: 70 yrs Sex: Male : 1950 Arrival Date: 08/13/2020 Time: 14:25 Bed 26 Private MD: [facility] ED Physician Brett Murray HPI: 08/13 15:31 This 70 yrs old Male presents to ER via Ambulatory with complaints of Leg jmm Swelling. 15:31 The patient presents with pain, swelling. Onset: The symptoms/episode began/occurred jmm gradually, 3 week(s) ago. Modifying factors: The symptoms are alleviated by elevating leg, the symptoms are aggravated by movement. Associated signs and symptoms: Pertinent positives: swelling, Pertinent negatives sob. This is a 70 year old male with a history of DM, HLP, HTN that presents to the ED with complaints of increased swelling to his legs. Patient states he feels like he is also retaining fluid in his abdomen. Denies chest pain or shortness of breath. . Historical: - Allergies: 14:38 No Known Allergies; ll1 - PMHx: 14:38 Diabetes - NIDDM; Hyperlipidemia; Hypertension; ll1 - PSHx: 14:38 None; ll1 - Immunization history:: Flu vaccine is not up to date. - Social history:: Smoking status: Patient denies any tobacco usage or history of. ROS: 15:31 Constitutional: Negative for fever, chills, and weight loss, Cardiovascular: Negative jmm for chest pain, palpitations, and edema, Respiratory: Negative for shortness of breath, cough, wheezing, and pleuritic chest pain. 15:31 MS/extremity: Positive for swelling. 15:31 All other systems are negative. Exam: 15:31 Constitutional: This is a well developed, well nourished patient who is awake, alert, jmm and in no acute distress. Head/Face: atraumatic. Eyes: EOMI, no conjunctival erythema appreciated ENT: Moist Mucus Membranes Neck: Trachea midline, Supple Chest/axilla: Normal chest wall appearance and motion. Cardiovascular: Regular rate and rhythm. No edema appreciated Respiratory: Normal respirations, no respiratory distress appreciated Abdomen/GI: Non distended, soft Back: Normal ROM 15:31 ECG was reviewed by the Attending Physician. 15:31 Musculoskeletal/extremity: edema noted bilaterally, compartments are soft, NVI. 15:31 Skin: Appearance: Color: normal in color. 15:31 Neuro: Orientation: is normal, Mentation: is normal, Memory: is normal. 15:31 Psych: Behavior/mood is pleasant, cooperative. Vital Signs: 14:39 BP 205 / 70; Pulse 66; Resp 17; Temp 98.1; Pulse Ox 95% on R/A; Weight 103.87 kg; ll1 Height 5 ft. 8 in. (172.72 cm); Pain 10/10; 15:40 Pulse Ox 90% on R/A; ec1 15:40 Pulse Ox 96% on 3 lpm NC; ec1 16:00 BP 184 / 76; Pulse 63; Resp 20 S; Pulse Ox 99% on 3 lpm NC; ec1 17:18 BP 196 / 64; Pulse 63; Resp 18 S; Pulse Ox 99% on 3 lpm NC; Pain 7/10; ec1 17:58 BP 201 / 67; Pulse 70; Resp 20 S; Pulse Ox 95% on 3 lpm NC; Pain 7/10; ec1 18:20 BP 167 / 72; Pulse 63; Resp 20 S; Pulse Ox 94% on R/A; ec1 14:39 Body Mass Index 34.82 (103.87 kg, 172.72 cm) ll1 MDM: 15:10 Patient medically screened. [facility] 18:19 Data reviewed: vital signs, nurses notes. Counseling: I had a detailed discussion with elizabeth the patient and/or guardian regarding: the historical points, exam findings, and any diagnostic results supporting the discharge/admit diagnosis, lab results, radiology results, the need for outpatient follow up, to return to the emergency department if symptoms worsen or persist or if there are any questions or concerns that arise at home. Refusal of service: The patient/guardian displays adequate decision making capability and despite a detailed discussion of alternatives, benefits, risks, and consequences refuses: Admission to the hospital for further work-up and treatment. ED course: Patient sat 02 went down in [facility] ED. O2 is administered. Patient's discomfort has been relieved. Patient was offered admission for observation. Patient declined. Patient is otherwise given strict return precautions. Patient understood and agrees with the plan of care. . 08/13 15:11 Order name: Basic Metabolic Panel; Complete Time: 16:06 jm08/13 15:11 Order name: CBC with Diff; Complete Time: 15:57 08/13 15:11 Order name: LFT's; Complete Time: 16:08/13 15:11 Order name: Magnesium; Complete Time: 16:08/13 15:11 Order name: NT PRO-BNP; Complete Time: 16:06 08/13 15:11 Order name: PT-INR; Complete Time: 15:57 08/13 15:11 Order name: Troponin (emerg Dept Use Only); Complete Time: 16:08/13 15:11 Order name: XRAY Chest (1 view); Complete Time: 16:08 08/13 15:45 Order name: US Extremity Venous W Compression Scott; Complete Time: 17:57 08/13 15:11 Order name: EKG; Complete Time: 15:12 08/13 15:11 Order name: Cardiac monitoring; Complete Time: 15:08/13 15:11 Order name: EKG - Nurse/Tech; Complete Time: 15:08/13 15:11 Order name: IV Saline Lock; Complete Time: 15:08/13 15:11 Order name: Labs collected and sent; Complete Time: 15:08/13 15:11 Order name: O2 Per Protocol; Complete Time: 15:08/13 15:11 Order name: O2 Sat Monitoring; Complete Time: 15:32 jmm EC:31 Rate is 70 beats/min. Rhythm is regular. QRS [place] is Normal. RI interval is normal. QRS jmm interval is normal. QT interval is normal. No Q waves. T waves are Flattened in leads II, III. No ST changes noted. Reviewed by me. Administered Medications: 15:39 Drug: Lasix 40 mg Route: IVP; Site: right antecubital; ec1 17:18 Follow up: Response: No adverse reaction ec1 15:40 Drug: morphine 4 mg Route: IVP; Site: right antecubital; ec1 17:18 Follow up: Response: No adverse reaction ec1 15:40 Drug: Zofran (Ondansetron) 4 mg Route: IVP; Site: right antecubital; ec1 17:18 Follow up: Response: No adverse reaction ec1 17:18 Drug: cloNIDine 0.1 mg Route: PO; ec1 18:26 Follow up: Response: Blood pressure is lowered ec1 17:18 Drug: carvedilol 6.25 mg Route: PO; ec1 18:26 Follow up: Response: Blood pressure is lowered ec1 Disposition: 08/13/20 18:20 Discharged to Home. Impression: Edema, unspecified. - Condition is Stable. - Discharge Instructions: Heart Failure, Peripheral Edema. - Prescriptions for Lasix 80 mg Oral Tablet - take 1 tablet by ORAL route 2 times per day; 30 tablet. - Medication Reconciliation Form, Thank You Letter, Antibiotic Education, Prescription Opioid Use form. - Follow up: Tony Montoya DO; When: 1 - 2 days; Reason: Recheck today's complaints, Continuance of care, Re-evaluation by your physician. Addendum: 08/16/2020 05:09 Co-signature as Attending Physician, Brett Murray MD I agree with the assessment and k dr plan of care. Signatures: Dispatcher [employer] EDMS Brett Murray MD MD [facility] Zafar Blackwell PA PA caitm Korey Hernandez, RN RN 1 Nathaly Ritter RN RN ec1 Corrections: (The following items were deleted from the chart) 08/13 18:40 18:20 08/13/2020 18:20 Discharged to Home. Impression: Edema, unspecified. Condition is ec1 Stable. Forms are Medication Reconciliation Form, Thank You Letter, Antibiotic Education, Prescription Opioid Use. Follow up: Tony Montoya; When: 1 - 2 days; Reason: Recheck today's complaints, Continuance of care, Re-evaluation by your physician. edelmira
--- NOTE | 2020-08-13 18:21 | ER ---
Nurse's Notes [facility] Name: Osmar Lutz Age: 70 yrs Sex: Male : 1950 Arrival Date: 08/13/2020 Time: 14:25 Bed 26 Private MD: Tony Montoya Diagnosis: Edema, unspecified Presentation: 08/13 14:39 Chief complaint: Patient states: Bilateral leg swelling with sores to both legs for 2-[address] Montoya today, was told to come to ED for eval. R/o DVT. No fever. Coronavirus screen: Client denies travel out of the [place] in the last 14 days. At this time, the client does not indicate any symptoms associated with coronavirus-19. Ebola Screen: Patient denies travel to an Ebola-affected area in the 21 days before illness onset. Initial Sepsis Screen: Does the patient meet any 2 criteria? No. Patient's initial sepsis screen is negative. Does the patient have a suspected source of infection? Yes: Skin breakdown/wound. Risk Assessment: Do you want to hurt yourself or someone else? Patient reports no desire to harm self or others. Onset of symptoms was July 22, 2020. 14:39 Method Of Arrival: Ambulatory ll1 14:39 Acuity: BARON 3 ll1 Historical: - Allergies: 14:38 No Known Allergies; ll1 - PMHx: 14:38 Diabetes - NIDDM; Hyperlipidemia; Hypertension; ll1 - PSHx: 14:38 None; ll1 - Immunization history:: Flu vaccine is not up to date. - Social history:: Smoking status: Patient denies any tobacco usage or history of. Screenin:41 Abuse screen: Denies threats or abuse. Denies injuries from another. Nutritional ec1 screening: No deficits noted. Tuberculosis screening: No symptoms or risk factors identified. Fall Risk No fall in past 12 months (0 pts). No secondary diagnosis (0 pts). IV access (20 points). Ambulatory Aid- None/Bed Rest/Nurse Assist (0 pts). Gait- Normal/Bed Rest/Wheelchair (0 pts) Mental Status- Oriented to own ability (0 pts). Assessment: 15:41 General: Appears in no apparent distress. uncomfortable, Behavior is calm, cooperative. ec1 Pain: Complains of pain in right leg and left leg Pain currently is 8 out of 10 on a pain scale. Neuro: Level of Consciousness is awake, alert, obeys commands. Cardiovascular: Rhythm is sinus rhythm. Respiratory: Airway is patent Respiratory effort is even, unlabored, Breath sounds are clear bilaterally. GI: Abdomen is round. : No signs and/or symptoms were reported regarding the genitourinary system. EENT: No signs and/or symptoms were reported regarding the EENT system. Derm: Wound noted right leg and left leg bilateral leg swelling with pitting edema. Musculoskeletal: No signs and/or symptoms reported regarding the musculoskeletal system. 16:20 Reassessment: Patient appears in no apparent distress at this time. No changes from ec1 previously documented assessment. Patient and/or family updated on plan of care and expected duration. Pain level reassessed. 17:18 Reassessment: Patient appears in no apparent distress at this time. No changes from ec1 previously documented assessment. Patient and/or family updated on plan of care and expected duration. Pain level reassessed. 18:01 Reassessment: Pt place on room air. ec1 Vital Signs: 14:39 BP 205 / 70; Pulse 66; Resp 17; Temp 98.1; Pulse Ox 95% on R/A; Weight 103.87 kg; ll1 Height 5 ft. 8 in. (172.72 cm); Pain 10/10; 15:40 Pulse Ox 90% on R/A; ec1 15:40 Pulse Ox 96% on 3 lpm NC; ec1 16:00 BP 184 / 76; Pulse 63; Resp 20 S; Pulse Ox 99% on 3 lpm NC; ec1 17:18 BP 196 / 64; Pulse 63; Resp 18 S; Pulse Ox 99% on 3 lpm NC; Pain 7/10; ec1 17:58 BP 201 / 67; Pulse 70; Resp 20 S; Pulse Ox 95% on 3 lpm NC; Pain 7/10; ec1 18:20 BP 167 / 72; Pulse 63; Resp 20 S; Pulse Ox 94% on R/A; ec1 14:39 Body Mass Index 34.82 (103.87 kg, 172.72 cm) ll1 ED Course: 14:25 Patient arrived in ED. mr 14:26 Tony Montoya DO is Private Physician. mr 14:39 Arm band placed on Patient placed in an exam room, on a stretcher. ll1 14:40 Triage completed. ll1 14:48 [facility] 14:48 Brett Murray MD is Attending Physician. jmm 14:59 Nathaly Ritter, RN is Primary Nurse. ec1 15:31 Placed in gown. Bed in low position. Call light in reach. Side rails up X 1. Verbal jp3 reassurance given. playground monitor on. Pulse ox on. NIBP on. 15:31 EKG done, by ED staff, reviewed by Zafar LOJA. Patient maintains SpO2 saturation jp3 greater than 95% on room air. 15:35 XRAY Chest (1 view) In Process Unspecified. EDMS 15:41 Inserted saline lock: 20 gauge in right antecubital area, using aseptic technique. ec1 Blood collected. 17:17 US Extremity Venous W Compression Scott In Process Unspecified. EDMS 18:20 Tony Montoya DO is Referral Physician. [facility] 18:31 No provider procedures requiring assistance completed. IV discontinued, intact. ec1 Administered Medications: 15:39 Drug: Lasix 40 mg Route: IVP; Site: right antecubital; ec1 17:18 Follow up: Response: No adverse reaction ec1 15:40 Drug: morphine 4 mg Route: IVP; Site: right antecubital; ec1 17:18 Follow up: Response: No adverse reaction ec1 15:40 Drug: Zofran (Ondansetron) 4 mg Route: IVP; Site: right antecubital; ec1 17:18 Follow up: Response: No adverse reaction ec1 17:18 Drug: cloNIDine 0.1 mg Route: PO; ec1 18:26 Follow up: Response: Blood pressure is lowered ec1 17:18 Drug: carvedilol 6.25 mg Route: PO; ec1 18:26 Follow up: Response: Blood pressure is lowered ec1 Output: 16:20 Urine: 300ml (Voided); Total: 300ml. ec1 17:58 Urine: 250ml (Voided); Total: 550ml. ec1 Outcome: 18:20 Discharge ordered by . jmm 18:31 Discharged to home ambulatory. ec1 18:31 Condition: good 18:31 Discharge instructions given to patient, Instructed on discharge instructions, follow up and referral plans. Demonstrated understanding of instructions, follow-up care, medications, Prescriptions given X 1. 18:40 Patient left the ED. ec1 Signatures: Dispatcher [employer] EDMS Zafar Blackwell PA PA jmm Rivera, Mary mr Beau Melo jp3 Korey Hernandez, TALIB RN ll1 Nathaly Ritter RN RN ec1
[2020-08-13 19:18] VITALS: TEMP 98.1
[2020-08-13 19:25] VITALS: BP 167/72; O2SAT 94
--- NOTE | 2020-08-14 07:55 | EKG ---
Test Date: 2020-08-13 Test Time: 15:26:25 [employer] [place]: SPRING MEASUREMENT RESULTS: Intervals: Rate: 70 VA: 166 QRSD: 108 QT: 444 QTc: 479 [place]: P: 63 VA: 166 QRS: -62 T: 102 INTERPRETIVE STATEMENTS: Sinus rhythm with marked sinus arrhythmia Incomplete right bundle branch block Left anterior fascicular block Cannot rule out Anteroseptal infarct, age undetermined ST & T wave abnormality, consider lateral ischemia Abnormal ECG No previous ECG available for comparison Electronically Signed On 08-14-20 07:54:10 UNDERGRADUATE INTERN by Gustavo Gaspar
== END 2020-08-13 18:40 | disposition home or self-care (01) ==
LOC: ER 14:22
DX: R60.9 Edema, unspecified (principal); I50.9 Heart failure, unspecified; I10 Essential (primary) hypertension
CPT/HCPCS: 93005; 85025; 80048; 36415; 83735; 85610; 80076; 84484; 83880; 71045; 93970; 96375; 96374; 99285; J1940; J2405